=== PATIENT | male | born 1980 | race Caucasian/White ===

== ENCOUNTER 2022-06-29 21:37 | Inpatient (IN) | payer SELFPAY ==
[~2022-06-29 21:37] MED LIST: Iopamidol-370 76% 500 ML 1 ML ONE
[2022-06-29] MEDS ORDERED: Morphine 4 MG/ML VIAL ONE (22:00)
[2022-06-29 23:08] LABS: #Eosinphils 0.1 thou/uL (0.0-0.7); #Lymphocytes 1.3 thou/uL (1.20-3.40); #Monocytes 0.6 thou/uL (0.11-0.59); #Neutrophils 10.8 thou/uL (1.40-6.50); %Basophils 0.3 % (0.0-1.0); %Eosinophils 0.8 % (0.0-10.0); %Monocytes 4.7 % (0.0-10.0); %Neutrophils 84.1 % (42.0-75.0); Hemoglobin 15.2 g/dL (14.0-18.0); Mean Corpuscular HGB CONC 35.1 g/dL (32.0-36.0); Mean Corpuscular Hemoglobin 32.6 pg (27.0-31.0); Mean Corpuscular Volume 92.8 fl (78.0-98.0); Mean Platelet Volume 7.1 fL (7.4-10.4); Platelet Count 302 10x3/uL (130-400); RBC Distribution Width 11.3 % (11.5-14.5); Red Blood Cell (RBC) Count 4.66 mill/uL (4.70-6.10); White Blood Cell (WBC) Count 12.8 10x3/uL (4.8-10.8)
[2022-06-29 23:33] LABS: ALT (SGPT) 20 U/L (8-55); AST (SGOT) 16 U/L (5-34); Albumin 4.5 g/dL (3.5-5.0); Alkaline Phosphatase 57 U/L (40-110); Anion Gap 14 mmol/L (10-20); BUN (Urea Nitrogen) 16 mg/dL (8.9-20.6); Bilirubin, Total 0.7 mg/dL (0.2-1.2); Calc. Creatinine Clearance 0 mL/min (70-130); Calcium 9.4 mg/dL (7.8-10.44); Carbon Dioxide 23 mmol/L (22-29); Chloride 104 mmol/L (98-107); Estimated GFR 84; Globulin 2.5 g/dL (2.4-3.5); Glucose 122 mg/dL (70-105); Potassium 3.7 mmol/L (3.5-5.1); Sodium 137 mmol/L (136-145)
[2022-06-30] MEDS ORDERED: Morphine 4 MG/ML VIAL ONE (00:22)
[2022-06-30] MEDS ORDERED: Dexamethasone 10 MG/ML VIAL ONE (02:00)
[2022-06-30] MEDS ORDERED: Ondansetron ODT 4 MG TAB PO PRN (03:20)
[2022-06-30] MEDS ORDERED: Acetaminophen 325 MG TAB PO PRN (03:20)
[2022-06-30] MEDS ORDERED: Morphine 4 MG/ML VIAL SLOW IVP PRN (03:20)
[2022-06-30] MEDS ORDERED: Ondansetron PF 4 MG/2 ML Vial IVP PRN (03:20)
[2022-06-30 04:57] VITALS: BMI 31.8
[2022-06-30 06:08] LABS: SARS-CoV-2 NAA Rapid Test Not Detected (NotDetected)
[2022-06-30] MEDS ORDERED: PROPOFOL 20 ML ONE (07:56)
[2022-06-30] MEDS ORDERED: Rocuronium Bromide 50 MG/5 ML VIAL ONE (07:56)
[2022-06-30] MEDS ORDERED: Lidocaine 1% PF 5 ML VIAL ONE ×2 (07:56→09:39)
[2022-06-30] MEDS ORDERED: Vancomycin 1 GM VIAL ONE (08:22)
[2022-06-30] MEDS ORDERED: Promethazine 25 MG TAB PO PRN (09:09)
[2022-06-30] MEDS ORDERED: traMADol HCl 50 MG TAB PO PRN (09:09)
[2022-06-30] MEDS ORDERED: Acetaminophen/Codeine 30-300mg Tablet PO PRN (09:09)
[2022-06-30] MEDS ORDERED: Mag-Al 1200 mg/1200 mg/30 ML UDCUP PO PRN (09:09)
[2022-06-30] MEDS ORDERED: diphenhydrAMINE 25 MG CAP PO PRN (09:09)
[2022-06-30] MEDS ORDERED: CEFAZOLIN 2 GM in Sodium Chloride 0.9% 100 ML IVPB SCH (09:15)
[2022-06-30] MEDS ORDERED: Fentanyl 250 MCG/5 ML VIAL ONE (09:16)
[2022-06-30] MEDS ORDERED: Dexmedetomidine 200 MCG/2 ML VIAL ONE (09:16)
[2022-06-30] MEDS ORDERED: Vecuronium 10 MG VIAL ONE ×2 (09:39)
[2022-06-30] MEDS ORDERED: Ketorolac Tromethamine 30 MG/ML VIAL ONE (09:39)
[2022-06-30] MEDS ORDERED: Rocuronium Bromide 10 MG/ML (10ML VIAL) ONE (09:39)
[2022-06-30] MEDS ORDERED: Glycopyrrolate 0.2 MG/ML 5 ML SYRINGE ONE (09:39)
[2022-06-30] MEDS ORDERED: PROPOFOL 200 MG/20 ML VIAL ONE (09:39)
[2022-06-30] MEDS ORDERED: Dexamethasone 20 MG/5 ML VIAL ONE (09:39)
[2022-06-30] MEDS ORDERED: Ondansetron PF 4 MG/2 ML Vial ONE (09:39)
[2022-06-30] MEDS ORDERED: SUGAMMADEX SODIUM 200 MG/2 ML VIAL ONE (10:41)
[2022-06-30] MEDS ORDERED: Ondansetron HCl/PF 4 MG/2 ML Vial IVP PRN (11:03)
[2022-06-30] MEDS ORDERED: PACU-Morphine 4MG/ML VIAL SLOW IVP PRN (11:03)
[2022-06-30] MEDS ORDERED: Promethazine HCl 25 MG/ML VIAL IM PRN (11:03)
[2022-06-30] MEDS ORDERED: Morphine Sulfate 2 MG/ML SYRINGE SLOW IVP PRN (11:03)
[2022-06-30] MEDS ORDERED: HYDROmorphone 2 MG/ML VIAL SLOW IVP PRN (11:03)
[2022-06-30] MEDS ORDERED: Promethazine HCl 25 MG/ML VIAL IVPB PRN (11:03)
[2022-06-30] MEDS ORDERED: Fentanyl 100 MCG/2 ML VIAL ONE ×3 (11:34→17:02)
[2022-06-30] MEDS ORDERED: CEFAZOLIN 2 GM VIAL ONE (13:44)
[2022-06-30] MEDS ORDERED: Sodium Chloride 0.9% 100 ML ONE (13:46)
[2022-06-30] MEDS: CEFAZOLIN 2 GM in Sodium Chloride 0.9% 100 ML IVPB SCH ×2 (13:50→22:05)
[2022-06-30] MEDS ORDERED: HYDROmorphone 0.5 MG/0.5 ML SYRINGE ONE (19:21)
[2022-06-30] MEDS: Sodium Chloride 0.9% 1,000 ML IV SCH ×2 (20:17)
[2022-06-30] MEDS: Morphine 4 MG/ML VIAL SLOW IVP PRN (21:58)
[2022-07-01] MEDS: Morphine 4 MG/ML VIAL SLOW IVP PRN ×2 (01:59→05:54)
[2022-07-01] MEDS ORDERED: Tamsulosin HCl 0.4 MG CAP PO SCH (06:00)
[2022-07-01] MEDS: Acetaminophen/Codeine 30-300mg Tablet PO PRN ×3 (07:18→19:08)
[2022-07-01 07:23] LABS: Hemoglobin 12.8 g/dL (14.0-18.0); Mean Corpuscular HGB CONC 34.8 g/dL (32.0-36.0); Mean Corpuscular Hemoglobin 33.2 pg (27.0-31.0); Mean Corpuscular Volume 95.4 fl (78.0-98.0); Mean Platelet Volume 7.4 fL (7.4-10.4); Platelet Count 276 10x3/uL (130-400); RBC Distribution Width 11.3 % (11.5-14.5); Red Blood Cell (RBC) Count 3.85 mill/uL (4.70-6.10); White Blood Cell (WBC) Count 18.1 10x3/uL (4.8-10.8)
[2022-07-01 07:39] LABS: Anion Gap 11 mmol/L (10-20); BUN (Urea Nitrogen) 18 mg/dL (8.9-20.6); Calc. Creatinine Clearance 194 mL/min (70-130); Calcium 8.9 mg/dL (7.8-10.44); Carbon Dioxide 23 mmol/L (22-29); Chloride 107 mmol/L (98-107); Estimated GFR 113; Glucose 138 mg/dL (70-105); Potassium 3.8 mmol/L (3.5-5.1); Sodium 137 mmol/L (136-145)
[2022-07-01] MEDS: busPIRone HCl 10 MG TAB PO SCH (08:34)
[2022-07-01] MEDS: Citalopram 20 MG TAB PO SCH (08:34)
[2022-07-01 10:42] LABS: Band 6 % (5-11); Lymphocytes 7 % (21-51); MDiff Complete? YES; Monocytes 9 % (0-10); Neutrophil 77 % (42-75); RBC Morphology Normal; Reactive Lymphocytes 1 % (0-10)
[2022-07-01] MEDS: Sodium Chloride 0.9% 1,000 ML IV SCH ×2 (12:53→18:08)
[2022-07-01] MEDS: Cyclobenzaprine 10 MG TAB PO PRN (14:54)
[2022-07-02] MEDS: Cyclobenzaprine 10 MG TAB PO PRN (00:04)
[2022-07-02] MEDS: Sodium Chloride 0.9% 1,000 ML IV SCH (05:19)
[2022-07-02 06:02] LABS: #Eosinphils 0.1 thou/uL (0.0-0.7); #Lymphocytes 1.4 thou/uL (1.20-3.40); #Monocytes 0.9 thou/uL (0.11-0.59); #Neutrophils 10.2 thou/uL (1.40-6.50); %Eosinophils 0.8 % (0.0-10.0); %Lymphocytes 11.4 % (21.0-51.0); %Monocytes 6.9 % (0.0-10.0); %Neutrophils 80.9 % (42.0-75.0); Hemoglobin 12.1 g/dL (14.0-18.0); Mean Corpuscular HGB CONC 34.5 g/dL (32.0-36.0); Mean Corpuscular Hemoglobin 33.1 pg (27.0-31.0); Platelet Count 245 10x3/uL (130-400); RBC Distribution Width 11.2 % (11.5-14.5); Red Blood Cell (RBC) Count 3.64 mill/uL (4.70-6.10); White Blood Cell (WBC) Count 12.6 10x3/uL (4.8-10.8)
[2022-07-02 06:17] LABS: Anion Gap 11 mmol/L (10-20); BUN (Urea Nitrogen) 12 mg/dL (8.9-20.6); Calc. Creatinine Clearance 194 mL/min (70-130); Calcium 8.6 mg/dL (7.8-10.44); Carbon Dioxide 23 mmol/L (22-29); Chloride 105 mmol/L (98-107); Estimated GFR 113; Glucose 111 mg/dL (70-105); Potassium 3.6 mmol/L (3.5-5.1)
[2022-07-02 06:33] LABS: Sodium 135 mmol/L (136-145)
[2022-07-02 08:26] VITALS: BP 117/76; TEMP 98.6
[2022-07-02] MEDS: busPIRone HCl 10 MG TAB PO SCH (08:38)
[2022-07-02] MEDS: Acetaminophen/Codeine 30-300mg Tablet PO PRN (08:38)
[2022-07-02] MEDS: Citalopram 20 MG TAB PO SCH (08:38)
[2022-07-02] MEDS ORDERED: ATOMOXETINE 100 MG PO SCH (09:00)
== END 2022-07-02 11:48 | disposition home or self-care (01) | DRG 519 ==
LOC: ERS 21:37 → ERHOLD 06-30 02:46 → SURG A 06-30 09:49 → T4-A 06-30 19:52
PROVIDERS: ADMIT Student in an Organized Health Care Education/Training Program; ATTEND Internal Medicine
PROC: 0SB20ZZ Excision of Lumbar Vertebral Disc, Open Approach (ICD-10-PCS; principal; 2022-06-30)
PROC: 01NB3ZZ Release Lumbar Nerve, Percutaneous Approach (ICD-10-PCS; 2022-06-30)
DX: M51.26 Other intervertebral disc displacement, lumbar region (principal); G83.4 Cauda equina syndrome; M48.061 Spinal stenosis, lumbar region without neurogenic claudication; F32.A Depression, unspecified; F41.9 Anxiety disorder, unspecified; F90.9 Attention-deficit hyperactivity disorder, unspecified type; R33.9 Retention of urine, unspecified; Z20.822 Contact with and (suspected) exposure to COVID-19; E66.9 Obesity, unspecified; Z79.899 Other long term (current) drug therapy; Z98.890 Other specified postprocedural states; Z87.891 Personal history of nicotine dependence; Z83.3 Family history of diabetes mellitus; Z68.31 Body mass index [BMI] 31.0-31.9, adult
CPT/HCPCS: 36415; 72132; 72158; 80048; 80053; 85025; 93005; 96374; 96375; 96376; C1713; J1100; J1170; J1885; J2270; J2405; J2704; J3010; J3370; J3490; J7050; Q9967; U0002